=== PATIENT | female | born 1965 | race Two or more races ===

== ENCOUNTER 2018-03-09 18:50 | Emergency (ER) | payer MEDICAID ==
[2018-03-09] MEDS ORDERED: NS 1,000 ML IV ONE (19:25)
[2018-03-09] MEDS ORDERED: LORazepam 2 MG/ML INJ IVP ONE (19:25)
--- NOTE | 2018-03-09 19:25 | EDPHY ---
H & P Stated Complaint: Lightheadedness and SOB gradually worsening onset x few hours ago Time Seen by Provider: 03/09/18 19:19 HPI/ROS: CHIEF COMPLAINT: Shortness of breath, dizziness, left rib pain HISTORY OF PRESENT ILLNESS: The patient is a 52-year-old female who comes to the emergency department complaining of shortness of breath, dizziness and left rib pain that began about for 5 hr ago. She is very nervous. She reports history of rheumatoid arthritis and fibromyalgia. She denies any cardiac history. She denies any pulmonary history. She has not had a fever or cough. No sore throat. She has had sinus congestion. She did not get a flu shot this year. No leg pain or swelling. No travel. She is not on hormones. She is becoming more anxious. Severity: Moderate Modifying factors: No improvement REVIEW OF SYSTEMS: Constitutional: denies: chills, fever, recent illness, recent injury EENTM: denies: blurred vision, double vision, nose congestion Respiratory: See HPI Cardiac: See HPI denies: irregular heart rate, lightheadedness, palpitations Gastrointestinal/Abdominal: denies: abdominal pain, diarrhea, nausea, vomiting, blood streaked stools Genitourinary: denies: dysuria, frequency, hematuria, pain Musculoskeletal: denies: joint pain, muscle pain Skin: denies: lesions, rash, jaundice, bruising Neurological: denies: headache, numbness, paresthesia, tingling, dizziness, weakness Hematologic/Lymphatic: denies: blood clots, easy bleeding, easy bruising Immunologic/allergic: denies: HIV/AIDS, transplant 10 systems reviewed and negative except as noted EXAM: GENERAL: Slightly distressed, stable vital signs, HEAD: Atraumatic, normocephalic. EYES: Pupils equal round and reactive to light, extraocular movements intact, sclera anicteric, conjunctiva are normal. ENT: TMs normal, nares patent, oropharynx clear without exudates. Moist mucous membranes. NECK: Normal range of motion, supple without lymphadenopathy or JVD. LUNGS: Breath sounds clear to auscultation bilaterally and equal. No wheezes rales or rhonchi. HEART: Slightly tachycardic, normal rhythm without murmurs, rubs or gallops. ABDOMEN: Soft, nontender, normoactive bowel sounds. No guarding, no rebound. No masses appreciated. BACK: No CVA tenderness, no spinal tenderness, step-offs or deformities EXTREMITIES: Normal range of motion, no pitting or edema. No clubbing or cyanosis. NEUROLOGICAL: Cranial nerves II through XII grossly intact. Normal speech, normal gait. 5/5 strength, normal movement in all extremities, normal sensation , normal reflexes PSYCH: Normal mood, normal affect. SKIN: Warm, dry, normal turgor, no visible rashes or lesions. Source: Patient Exam Limitations: No limitations - Personal History LMP (Females 10-55): Hysterectomy Current Tetanus Diphtheria and Acellular Pertussis (TDAP): No - Medical/Surgical History Hx Asthma: No Hx Chronic Respiratory Disease: No Hx Diabetes: No Hx Cardiac Disease: No Hx Renal Disease: No Hx Cirrhosis: No Hx Alcoholism: No Hx HIV/AIDS: No Hx Splenectomy or Spleen Trauma: No Other PMH: fibromyalgia, rheumatoid arthritis - Family History Significant Family History: No pertinent family hx - Social History Smoking Status: Never smoked Alcohol Use: Sober Drug Use: None Constitutional: Initial Vital Signs Temperature (C) 36.6 C 03/09/18 18:58 Heart Rate 120 H 03/09/18 18:58 Respiratory Rate 18 03/09/18 18:58 Blood Pressure 143/99 H 03/09/18 18:58 O2 Sat (%) 100 03/09/18 18:58 O2 Delivery Mode Room Air Allergies/Adverse Reactions: aspirin Allergy (Verified 03/09/18 18:58) Home Medications: Medication Instructions Recorded NK [No Known Home Meds] 03/09/18 Medical Decision Making - Diagnostics EKG Interpretation: An EKG obtained and was read and documented in trace view. Please see trace view for full reading and report. Sinus rhythm, no acute ischemic changes Imaging: Discussed imaging studies w/ energy management specialist Radiologist ED Course/Re-evaluation: 8:30 p.m. the patient is feeling much better after Ativan. She is calm. She is no longer tachycardic. Her troponin and D-dimer negative. Her EKG and chest x-ray are normal. 9:00 p.m. the patient continues to feel well. Her urinalysis and flu swab were negative. She is eager to go home. We discussed possible causes for her symptoms. She thinks that she is under lot of stress in the is likely anxiety. She tells me now that she has actually had the symptoms for about 5 years. She is asking for anxiety medicine to take at home. We discussed further observation and testing and BP troponin. She declines this. Have her follow up with her primary. We also discussed indications for returning here. Differential Diagnosis: Partial list of the Differential diagnosis considered include but were not limited to; anxiety, PE, acute coronary disease and although unlikely based on the history and physical exam, I also considered pneumonia, pneumothorax. I discussed these differential diagnoses and the plan with the patient as well as the usual and expected course. The patient understands that the diagnosis is provisional and that in medicine we are not always correct and that further workup is often warranted. Usual and customary warnings were given. All of the patient's questions were answered. The patient was instructed to return to the emergency department should the symptoms at all worsen or return, otherwise to followup with the physician as we discussed. - Data Points Laboratory Results: Laboratory Results 03/09/18 19:35 03/09/18 19:35 Medications Given: Discontinued Medications Hydromorphone HCl (Dilaudid) 0.5 mg IVP EDNOW ONE Stop: 03/09/18 19:27 Last Admin: 03/09/18 20:08 Dose: Not Given Sodium Chloride (Ns) 1,000 mls @ 0 mls/hr IV EDNOW ONE; Wide Open PRN Reason: Protocol Stop: 03/09/18 19:26 Last Admin: 03/09/18 20:00 Dose: 1,000 mls Lorazepam (Ativan Injection) 0.5 mg IVP EDNOW ONE Stop: 03/09/18 19:26 Last Admin: 03/09/18 20:01 Dose: 0.5 mg Lorazepam (Ativan 1 Mg Prepack#4) 1 btl TAKEHOME EDNOW ONE Stop: 03/09/18 21:10 Last Admin: 03/09/18 21:19 Dose: 1 btl Point of Care Test Results: Chemistry 03/09/18 19:40 POC Troponin I 0.00 ng/mL ng/mL (0.00-0.08) Departure - Departure Disposition: Home, Routine, Self-Care Clinical Impression: Anxiety reaction Chest pain Qualifiers: Chest pain type: unspecified Qualified Code(s): R07.9 - Chest pain, unspecified Condition: Fair Instructions: Lorazepam (By mouth), Chest Pain (ED), Anxiety (ED) Referrals: NONE *PRIMARY CARE P,. [Primary Care Provider] - As per Instructions Jag Lagunas MD [[facility] [place] Primary Care Provider] - As per Instructions
[2018-03-09] MEDS ORDERED: HYDROmorphONE/DILAUDID 2 MG/ML INJ IVP ONE (19:26)
[2018-03-09 19:56] LABS: PLATELET COUNT 269 10^3/uL (150-400)
--- NOTE | 2018-03-09 19:59 | CPEKG ---
Test Reason : OPEN Blood Pressure : / mmHG Vent. Rate : 099 BPM Atrial Rate : 099 BPM P-R Int : 124 ms QRS Dur : 083 ms QT Int : 354 ms P-R-T Axes : 066 065 058 degrees QTc Int : 455 ms Sinus rhythm Left atrial enlargement Anteroseptal infarct, age indeterminate Confirmed by Louis Davalos ([id number]) on 03/09/2018 7:59:28 PM Referred By: Confirmed By:Louis Davalos
[2018-03-09] MEDS ORDERED: LORAZEPAM 1 MG PREPACK#4 BTL TAKEHOME ONE (21:09)
[2018-03-09 21:27] VITALS: BP 127/73
== END 2018-03-09 21:29 | disposition home or self-care (01) ==
DX: R07.9 Chest pain, unspecified (principal); F41.1 Generalized anxiety disorder; E86.9 Volume depletion, unspecified; R42 Dizziness and giddiness; M06.9 Rheumatoid arthritis, unspecified; M79.7 Fibromyalgia
CPT/HCPCS: 84484-PO; 96374; J1170; J2060